=== PATIENT | male | born 1970 | race Caucasian/White ===

== ENCOUNTER 2017-09-05 18:24 | Emergency (ER) | payer SELFPAY ==
[~2017-09-05] VITALS: Ht 172.7 cm; Wt 77.1 kg
[2017-09-05 18:24] VITALS: BP_SYST 132
--- NOTE | 2017-09-05 18:24 | NUR ---
Ambulatory to hallway chair 1 accompanied by Nadeem CONN. Left wrist cuffed to chair
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
--- NOTE | 2017-09-05 18:39 | NUR ---
Dr. Bess at bedside for evaluation
--- NOTE | 2017-09-05 18:51 | NUR ---
Patient given written and verbal discharge instructions and verbalizes understanding. ER MD discussed with patient the results and treatment provided. Patient in stable condition. ID arm band removed. No Rx given. Patient educated on pain management and to follow up with PMD. Pain Scale 0/10. Opportunity for questions provided and answered.
[2017-09-05 18:52] VITALS: BP_SYST 132
== END 2017-09-05 18:51 ==
LOC: SED 18:24
DX: S00.81XA Abrasion of other part of head, initial encounter (principal); H57.8 Other specified disorders of eye and adnexa; X58.XXXA Exposure to other specified factors, initial encounter; Y93.89 Activity, other specified; Y92.89 Other specified places as the place of occurrence of the external cause; Y99.8 Other external cause status
CPT/HCPCS: 99283